=== PATIENT | female | born 1935 | race Caucasian/White ===

== ENCOUNTER → 2017-05-01 | Outpatient (CLI) | payer MEDICARE, OTHER | LOC: COL.VAS 15:00 | DX: R60.0 Localized edema (principal) ==

== ENCOUNTER 2018-09-18 14:18 | Day surgery (SDC) | payer MEDICARE, OTHER ==
[~2018-09-18] VITALS: Ht 170.2 cm; Wt 74.8 kg
[2018-09-18 14:36] VITALS: BP 145/55; PULSE 77; TEMP 98.2
--- NOTE | 2018-09-18 15:00 | NUR ---
Patient up to room 310. Oriented and settled to room. daughter at bedside. Patient here for bowel prep and colonoscopy. Patient assessment complete. Lungs clear throughout, heart RRR. Denies SOB, dizziness, chest pain. Patient independent and ambulates well with cane. Pulses strong bilaterally. BLE edema 2+. No other needs at this time. Call light within reach.
[2018-09-18] MEDS ORDERED: SYNTHROID0.1 MG/TAB PO (16:52)
[2018-09-18] MEDS ORDERED: ATIVAN 0.50.5 MG/TAB PO (16:54)
[2018-09-18] MEDS ORDERED: LASIX 40MG TABL40 MG PO (16:55)
[2018-09-18] MEDS ORDERED: CELEXA10 MG PO (16:56)
[2018-09-18] MEDS ORDERED: NEURONTIN300 MG/CAP PO (16:59)
[2018-09-18] MEDS ORDERED: AMITRIPTYLINE H25 M1 PO (17:00)
[2018-09-18] MEDS ORDERED: PEPCID 20MG TAB20 MG PO (17:01)
[2018-09-18] MEDS ORDERED: PROBIOTIC ACID1 EAC3 PO (17:02)
[2018-09-18] MEDS ORDERED: PRILOSEC 20MG20 MG PO (17:05)
--- NOTE | 2018-09-18 18:00 | NUR ---
20G IV started in LFA. IV is patent and flushing with no complications. Zofran administered, patient concerned for nausea with bowel prep. Requesting tylenol. [facility] No other needs at this time.
--- NOTE | 2018-09-18 19:15 | NUR ---
Phoned Dr. Cox. Per Brooke, ordered Tylenol 500 PRN Q6. Verbal phone order to continue home meds for the evening and morning with sips of water. Bowel prep to be started by TEJAS Francois. Denies other needs at this time. Report given to TEJAS Francois.
--- NOTE | 2018-09-18 23:34 | NUR ---
Patient assessed around 1999. Daughter was at bedside. Started on bowel prep as ordered. Tolerating well so far. Patient did not want to take Elavil tonight. Did request PRN APAP for toothache. MD was called and gave order for PRN APAP as requested. No further complaints of pain or discomfort voiced at this time. LS CTA. Respirations even and unlabored. HRR. BSAx4. Patient seemed a little anxious, but stated she did not want to take her PRN Ativan. Voiced no other needs or concerns. Patient's anxiety seems to have decreased. Resting in bed with eyes closed at this time. Call light is within reach.
[2018-09-19] VITALS (8 sets, daily range): BP systolic 139–181; BP diastolic 59–80; PULSE 41–78; TEMP 97.6–98.1
--- NOTE | 2018-09-19 06:23 | NUR ---
Started patient on next miralax so that it can be complete by 0800. Patient smiling and pleasant this morning, stating that she slept well. Reports stools are liquid, and greenish in color. Encouraged to call the next time she goes to the bathroom so that staff can see how her stools are looking. Voiced understanding. Denies having pain and discomfort. Voices no other needs or concerns at this time. In bed working on bowel prep. Call light is within reach. Commode is next to bed in case patient feels like she can not get to the bathoom in time as requested.
--- NOTE | 2018-09-19 08:22 | NUR ---
Pt alert and oriented. Pt finishing bowel prep this am. Pt had liquid green stool. Pt IV intact and no redness or infiltration noted. Pt am assessment completed. Pt has call light in reach and denies pain or needs at this time.
--- NOTE | 2018-09-19 08:59 | NUR ---
NIR met with the patient to discuss discharge plan. The patient lives in [place] with her , Tomi. She reports independence with ADLs and has a cane that she uses when she goes outside. The patient's PCP is Dr. Dontrell Ornelas and she receives her medications at [facility]. She reports no difficulties obtaining her meds. The patient does not have advanced directives in EMR, but she states that she does have them completed and at home. She states her son, Tee Ross, is her DPOA-HC. The patient plans to return home with her upon discharge. No additional needs at this time.
--- NOTE | 2018-09-19 12:00 | NUR ---
Pt taken down for EGD/Colonoscopy by Joe. Thornton from [facility] given report.
--- NOTE | 2018-09-19 12:08 | NUR ---
First visit from the assembly hand. No needs right now.
--- NOTE | 2018-09-19 16:01 | NUR ---
Pt alert and oriented. Pt has wilsonhter here to take her home. Pt ate some pudding and applesauce and drank water with no issue. Pt education given on post op colonoscopy. Pt denies questions and has all belongings.
== END 2018-09-19 16:12 | disposition home or self-care (01) ==
LOC: SDCO 14:18 → MEDICAL 14:20 → SDCO 09-19 14:00
DX: D12.2 Benign neoplasm of ascending colon (principal); K29.30 Chronic superficial gastritis without bleeding; K62.1 Rectal polyp; R19.7 Diarrhea, unspecified; Z80.0 Family history of malignant neoplasm of digestive organs; Z86.010 Personal history of colon polyps; Z88.2 Allergy status to sulfonamides; E78.00 Pure hypercholesterolemia, unspecified; K92.1 Melena; Z88.1 Allergy status to other antibiotic agents; I10 Essential (primary) hypertension; K21.9 Gastro-esophageal reflux disease without esophagitis; E03.9 Hypothyroidism, unspecified
CPT/HCPCS: OP; J2405; J2704; J7030